=== PATIENT | male | born 1950 | race Hispanic/Latino ===

== ENCOUNTER 2022-02-16 08:00 | Inpatient (IN) | payer OTHER ==
[~2022-02-16] VITALS: Ht 177.8 cm; Wt 94.4 kg
[2022-02-16 09:32] LABS: APPEARANCE,URINE Clear (CLEAR); BILIRUBIN,URINE Negative (NEGATIVE); COLOR,URINE Dark Yellow (YELLOW); GLUCOSE, URINE (UA) Negative (NEGATIVE); KETONES,URINE Trace mg/dL (NEGATIVE); LEUKOCYTE ESTERASE ,URINE Negative (NEGATIVE); NITRATE,URINE Negative (NEGATIVE); OCCULT BLOOD,URINE Negative (NEGATIVE); PROTEIN,URINE Trace mg/dL (NEGATIVE)
[2022-02-16 09:57] LABS: BACTERIA,URINE Few /HPF (None Seen); MUCUS,URINE Many LPF (None Seen); RBC,URINE 0-1 /HPF (0-1); SQUAMOUS EPITHELIAL CELL,UR Rare /HPF (0-2); WBC,URINE 0-1 /HPF (0-1)
[2022-02-17 10:28] VITALS: BP 169/93
[2022-02-17] MEDS ORDERED: CETI10TA57 PO (11:46)
[2022-02-17] MEDS ORDERED: FAMO20TA8 PO (11:46)
[2022-02-17] MEDS ORDERED: BUDE10.2 IH (11:46)
[2022-02-17] MEDS ORDERED: TAMS-1 PO (11:46)
[2022-02-17] MEDS ORDERED: ALBU8.5H8 IH (11:46)
[2022-02-17] MEDS ORDERED: LIDO1ADH71 TP (11:46)
[2022-02-17] MEDS ORDERED: LATA7.5D OP (11:46)
[2022-02-17] MEDS ORDERED: DICL20GE TP (11:46)
[2022-02-17] MEDS ORDERED: CARV6.25 PO (11:46)
[2022-02-17] MEDS ORDERED: AEC81 PO (11:46)
[2022-02-17] MEDS ORDERED: BETA1TAB20 PO (11:46)
[2022-02-17] MEDS ORDERED: AMOX875T2 PO (11:46)
[2022-02-17] MEDS ORDERED: LOSA50TA64 PO (11:46)
[2022-02-17] MEDS ORDERED: DORZ10DR19 OP (11:46)
[2022-02-18] VITALS (24 sets, daily range): BP systolic 127–174; BP diastolic 78–93
[2022-02-18] MEDS: CEFAZOLIN SODIUM 1 GM VIAL IVP ONE ×2 (10:21→11:58)
[2022-02-18] MEDS ORDERED: LACTATED RINGERS 1000ML 1,000 ML IV ONE (10:30)
[2022-02-18] MEDS ORDERED: CEFAZOLIN SODIUM 1 GM VIAL ONE (10:42)
[2022-02-18] MEDS ORDERED: 0.9%NACL 10ML VIAL ONE (11:35)
[2022-02-18] MEDS ORDERED: ROPIVACAINE 0.5% 5MG/ML 30ML IJ ONE (11:35)
[2022-02-18] MEDS ORDERED: PROPOFOL 10 MG/ML 20ML VIAL IV ONE (11:43)
[2022-02-18] MEDS ORDERED: LIDOCAINE PF 100MG/5ML (2%) SYRINGE 5ML ONE (11:43)
[2022-02-18] MEDS ORDERED: FENTANYL CITRATE PF 50 MCG/1 ML 2ML VIAL ONE ×3 (11:43→14:11)
[2022-02-18] MEDS ORDERED: ROCURONIUM 10MG/1ML SYR 10 MG/ML ML ONE ×2 (11:43→12:46)
[2022-02-18] MEDS ORDERED: TRANEXAMIC ACID 1000MG/10ML ONE ×2 (12:02→14:42)
[2022-02-18] MEDS ORDERED: EPHEDRINE SULFATE 50 MG/ML AMPULE ONE (12:20)
[2022-02-18] MEDS: CEFAZOLIN SODIUM 1 GM VIAL ONE ×2 (12:35→12:36)
[2022-02-18] MEDS ORDERED: DiphenhydrAMINE HCL 50 MG/ML VIAL IVP PRN (14:30)
[2022-02-18] MEDS ORDERED: OXYCODONE HCL 5 MG TAB PO PRN (14:30)
[2022-02-18] MEDS ORDERED: CALCIUM CARB 500MG PO PRN (14:30)
[2022-02-18] MEDS ORDERED: TRAMADOL HCL 50 MG TABLET PO PRN (14:30)
[2022-02-18] MEDS ORDERED: KCL 20 MEQ ERTAB PO PRN (14:30)
[2022-02-18] MEDS: ACETAMINOPHEN 500 MG TABLET PO SCH ×2 (14:30→20:38)
[2022-02-18] MEDS ORDERED: ONDANSETRON 4MG INJ IVP PRN (14:30)
[2022-02-18] MEDS ORDERED: POTASSIUM CHLORIDE 10% ELIXIR 20 MEQ/15 ML UDCUP PO PRN (14:30)
[2022-02-18] MEDS ORDERED: POTASSIUM CHLORIDE 20MEQ/100ML 100 ML IV PRN (14:30)
[2022-02-18] MEDS ORDERED: FERROUS FUMARATE 324 MG TABLET PO PRN (14:30)
[2022-02-18] MEDS ORDERED: LIDOCAINE HCL-MPF 1% 2ML VIAL IV PRN (14:30)
[2022-02-18] MEDS ORDERED: TEMAZEPAM 15 MG CAPSULE PO PRN (14:30)
[2022-02-18] MEDS ORDERED: NEOSTIGMINE 5MG/5ML SYR IV ONE (14:41)
[2022-02-18] MEDS ORDERED: GLYCOPYRROLATE 1 MG/5 ML SYRINGE ONE (14:42)
[2022-02-18] MEDS ORDERED: MEPERIDINE-PF 25 MG/ML SYG ONE (15:06)
[2022-02-18] MEDS: KETOROLAC 15MG/ML VIAL (15MG/ML) IV PRN (16:58)
[2022-02-18] MEDS: 0.9%NACL 1000ML 1,000 ML IV SCH (16:58)
[2022-02-18] MEDS ORDERED: ALBUTEROL INHALER 90MCG/INH IH SCH (18:00)
[2022-02-18] MEDS: ALBUTEROL 0.083% 2.5 MG/3 ML INH IH SCH (18:00)
[2022-02-18] MEDS ORDERED: BUDESONIDE 0.5 MG/2 ML INH IH SCH (18:00)
[2022-02-18] MEDS: CEFAZOLIN SODIUM 1 GM VIAL IVP SCH (18:43)
[2022-02-18] MEDS: OXYCODONE HCL 5 MG TAB PO PRN ×2 (18:46→22:56)
[2022-02-18] MEDS: TAMSULOSIN HCL 0.4 MG CAP.ER.24H PO SCH (20:38)
[2022-02-18] MEDS: LOSARTAN 50 MG TABLET PO SCH (20:38)
[2022-02-18] MEDS: CELECOXIB 200 MG CAP PO SCH (20:38)
[2022-02-18] MEDS: VIT E PO SCH (20:39)
[2022-02-18] MEDS: VIT C PO SCH (20:39)
[2022-02-18] MEDS: FAMOTIDINE 20MG TAB PO SCH (20:39)
[2022-02-18] MEDS: ZINC PO SCH (20:39)
[2022-02-18] MEDS: DORZOLAMIDE HCL 2% 10ML DROPS OP SCH (20:39)
[2022-02-18] MEDS: COPPER PO SCH (20:39)
[2022-02-18] MEDS: CARVEDILOL 6.25 MG TABLET PO SCH (20:39)
[2022-02-18] MEDS: VIT A PO SCH (20:39)
[2022-02-18] MEDS: LATANOPROST 2.5 ML DROPS OP SCH (20:40)
[2022-02-18] MEDS ORDERED: ASPIRIN 81 MG EC TAB PO SCH (21:00)
[2022-02-19] MEDS: ALBUTEROL 0.083% 2.5 MG/3 ML INH IH SCH
[2022-02-19] MEDS: KETOROLAC 15MG/ML VIAL (15MG/ML) IV PRN ×4 (00:07→18:52)
[2022-02-19] MEDS: 0.9%NACL 1000ML 1,000 ML IV SCH ×2 (00:30→10:30)
[2022-02-19 03:47] VITALS: BP 132/76
[2022-02-19] MEDS: CEFAZOLIN SODIUM 1 GM VIAL IVP SCH (04:03)
[2022-02-19 04:14] LABS: MEAN CORPUSCULAR HEMOGLOBIN 30.1 pg (27.0-33.0); MEAN CORPUSCULAR HGB CONC 34.4 g/dL (32.0-36.0); MEAN CORPUSCULAR VOLUME 87.4 fL (79-99); RED BLOOD CELL COUNT(AUTO) 3.66 MIL/uL (4.50-6.20); RED CELL DISTRIBUTION WIDTH 12.5 % (11.0-15.5); WHITE BLOOD COUNT (AUTO) 10.5 K/uL (4.8-10.8)
[2022-02-19 04:25] LABS: CREATININE 1.2 mg/dL (0.5-1.5); POTASSIUM 3.8 mmol/L (3.5-5.1)
[2022-02-19] MEDS: OXYCODONE HCL 5 MG TAB PO PRN ×4 (05:54→23:58)
[2022-02-19] MEDS: ACETAMINOPHEN 500 MG TABLET PO SCH ×3 (06:30→22:30)
[2022-02-19] MEDS ORDERED: ALBUTEROL 0.083% 2.5 MG/3 ML INH IH PRN (07:00)
[2022-02-19] MEDS ORDERED: BUDESONIDE 0.5 MG/2 ML INH IH PRN (07:00)
[2022-02-19 08:25] VITALS: BP 134/85
[2022-02-19] MEDS: DORZOLAMIDE HCL 2% 10ML DROPS OP SCH ×2 (09:00→20:38)
[2022-02-19] MEDS: POLYETHYLENE GLYCOL 3350 17 GM POWD.PACK PO SCH (09:46)
[2022-02-19] MEDS: CETIRIZINE HCL 5 MG TABLET PO SCH (09:46)
[2022-02-19] MEDS: FAMOTIDINE 20MG TAB PO SCH ×2 (09:47→20:29)
[2022-02-19] MEDS: TAMSULOSIN HCL 0.4 MG CAP.ER.24H PO SCH ×2 (09:47→20:29)
[2022-02-19] MEDS: ASPIRIN 81 MG EC TAB PO SCH (09:47)
[2022-02-19] MEDS: LOSARTAN 50 MG TABLET PO SCH ×2 (09:47→20:29)
[2022-02-19] MEDS: CELECOXIB 200 MG CAP PO SCH ×2 (09:48→20:29)
[2022-02-19] MEDS: CARVEDILOL 6.25 MG TABLET PO SCH ×2 (09:48→20:30)
[2022-02-19 11:17] VITALS: BP 146/80
[2022-02-19 15:47] VITALS: BP 154/84
[2022-02-19 20:28] VITALS: BP 143/71
[2022-02-19] MEDS: VIT E PO SCH (20:30)
[2022-02-19] MEDS: COPPER PO SCH (20:30)
[2022-02-19] MEDS: ZINC PO SCH (20:30)
[2022-02-19] MEDS: VIT C PO SCH (20:30)
[2022-02-19] MEDS: VIT A PO SCH (20:30)
[2022-02-19] MEDS: LATANOPROST 2.5 ML DROPS OP SCH (20:39)
[2022-02-19 23:33] VITALS: BP 135/74
[2022-02-20] MEDS: KETOROLAC 15MG/ML VIAL (15MG/ML) IV PRN ×3 (00:55→20:05)
[2022-02-20] MEDS: OXYCODONE HCL 5 MG TAB PO PRN ×4 (04:30→23:09)
[2022-02-20 04:46] VITALS: BP 135/75
[2022-02-20] MEDS: ACETAMINOPHEN 500 MG TABLET PO SCH ×2 (06:15→23:10)
[2022-02-20 08:11] VITALS: BP 151/78
[2022-02-20] MEDS: ASPIRIN 81 MG EC TAB PO SCH (08:32)
[2022-02-20] MEDS: CETIRIZINE HCL 5 MG TABLET PO SCH (08:32)
[2022-02-20] MEDS: CELECOXIB 200 MG CAP PO SCH ×2 (08:33→20:05)
[2022-02-20] MEDS: TAMSULOSIN HCL 0.4 MG CAP.ER.24H PO SCH ×2 (08:33→20:05)
[2022-02-20] MEDS: POLYETHYLENE GLYCOL 3350 17 GM POWD.PACK PO SCH (08:34)
[2022-02-20] MEDS: FAMOTIDINE 20MG TAB PO SCH ×2 (08:34→20:05)
[2022-02-20] MEDS: LOSARTAN 50 MG TABLET PO SCH ×2 (08:34→20:05)
[2022-02-20] MEDS: CARVEDILOL 6.25 MG TABLET PO SCH ×2 (08:34→20:06)
[2022-02-20] MEDS: DORZOLAMIDE HCL 2% 10ML DROPS OP SCH ×2 (08:35→20:09)
[2022-02-20 11:15] VITALS: BP 143/75
[2022-02-20 16:24] VITALS: BP 135/70
[2022-02-20] MEDS ORDERED: BISACODYL 5 MG TABLET.DR PO ONE (18:11)
[2022-02-20] MEDS: BISACODYL 5 MG TABLET.DR PO SCH ×2 (18:18→20:06)
[2022-02-20] MEDS: ZINC PO SCH (20:07)
[2022-02-20] MEDS: VIT A PO SCH (20:07)
[2022-02-20] MEDS: VIT E PO SCH (20:07)
[2022-02-20] MEDS: COPPER PO SCH (20:07)
[2022-02-20] MEDS: VIT C PO SCH (20:07)
[2022-02-20] MEDS: LATANOPROST 2.5 ML DROPS OP SCH (20:10)
[2022-02-20 20:34] VITALS: BP 151/80
[2022-02-20 23:44] VITALS: BP 149/81
[2022-02-21 03:57] VITALS: BP 132/78
[2022-02-21] MEDS: ACETAMINOPHEN 500 MG TABLET PO SCH ×3 (05:59→22:30)
[2022-02-21] MEDS: OXYCODONE HCL 5 MG TAB PO PRN ×3 (06:00→19:42)
[2022-02-21 07:05] VITALS: BP 124/68
[2022-02-21] MEDS: ASPIRIN 81 MG EC TAB PO SCH (07:52)
[2022-02-21] MEDS: CELECOXIB 200 MG CAP PO SCH ×2 (07:52→19:52)
[2022-02-21] MEDS: BISACODYL 5 MG TABLET.DR PO SCH ×2 (07:52→19:52)
[2022-02-21] MEDS: FAMOTIDINE 20MG TAB PO SCH ×2 (07:52→19:53)
[2022-02-21] MEDS: CETIRIZINE HCL 5 MG TABLET PO SCH (07:52)
[2022-02-21] MEDS: TAMSULOSIN HCL 0.4 MG CAP.ER.24H PO SCH ×2 (07:52→19:52)
[2022-02-21] MEDS: CARVEDILOL 6.25 MG TABLET PO SCH ×2 (07:53→19:53)
[2022-02-21] MEDS: POLYETHYLENE GLYCOL 3350 17 GM POWD.PACK PO SCH (07:53)
[2022-02-21] MEDS: LOSARTAN 50 MG TABLET PO SCH ×2 (07:53→19:53)
[2022-02-21] MEDS: DORZOLAMIDE HCL 2% 10ML DROPS OP SCH ×2 (07:58→20:00)
[2022-02-21] MEDS: KETOROLAC 15MG/ML VIAL (15MG/ML) IV PRN (09:04)
[2022-02-21 10:55] VITALS: BP 124/63
[2022-02-21] MEDS ORDERED: BISACODYL 10 MG SUPP.RECT RC PRN (14:30)
[2022-02-21 15:00] VITALS: BP 130/74
[2022-02-21 19:38] VITALS: BP 142/75
[2022-02-21] MEDS: ZINC PO SCH (20:00)
[2022-02-21] MEDS: LATANOPROST 2.5 ML DROPS OP SCH (20:00)
[2022-02-21] MEDS: VIT C PO SCH (20:00)
[2022-02-21] MEDS: VIT A PO SCH (20:00)
[2022-02-21] MEDS: VIT E PO SCH (20:00)
[2022-02-21] MEDS: COPPER PO SCH (20:00)
[2022-02-21 23:41] VITALS: BP 118/61
[2022-02-22] MEDS: OXYCODONE HCL 5 MG TAB PO PRN ×5 (01:54→20:40)
[2022-02-22] MEDS: KETOROLAC 15MG/ML VIAL (15MG/ML) IV PRN ×3 (02:13→18:43)
[2022-02-22 03:58] VITALS: BP 127/69
[2022-02-22] MEDS: ACETAMINOPHEN 500 MG TABLET PO SCH ×2 (05:40→14:51)
[2022-02-22 08:00] VITALS: BP 148/78
[2022-02-22] MEDS: FAMOTIDINE 20MG TAB PO SCH ×2 (08:33→20:40)
[2022-02-22] MEDS: ASPIRIN 81 MG EC TAB PO SCH (08:34)
[2022-02-22] MEDS: CELECOXIB 200 MG CAP PO SCH ×2 (08:34→20:39)
[2022-02-22] MEDS: TAMSULOSIN HCL 0.4 MG CAP.ER.24H PO SCH ×2 (08:34→20:39)
[2022-02-22] MEDS: CETIRIZINE HCL 5 MG TABLET PO SCH (08:34)
[2022-02-22] MEDS: LOSARTAN 50 MG TABLET PO SCH ×2 (08:34→20:39)
[2022-02-22] MEDS: POLYETHYLENE GLYCOL 3350 17 GM POWD.PACK PO SCH (08:35)
[2022-02-22] MEDS: CARVEDILOL 6.25 MG TABLET PO SCH ×2 (08:35→20:40)
[2022-02-22] MEDS: BISACODYL 5 MG TABLET.DR PO SCH ×2 (08:35→20:42)
[2022-02-22] MEDS: DORZOLAMIDE HCL 2% 10ML DROPS OP SCH ×2 (09:00→21:00)
[2022-02-22] MEDS: ENOXAPARIN SODIUM 40 MG/0.4 ML SYRINGE SQ ONE ×2 (09:04→14:52)
[2022-02-22] MEDS ORDERED: ENOXAPARIN SODIUM 40 MG/0.4 ML SYRINGE SQ SCH ×2 (09:30)
[2022-02-22 11:56] VITALS: BP 122/63
[2022-02-22 16:00] VITALS: BP 147/78
[2022-02-22] MEDS: ZINC PO SCH (20:42)
[2022-02-22] MEDS: VIT E PO SCH (20:42)
[2022-02-22] MEDS: VIT A PO SCH (20:42)
[2022-02-22] MEDS: LATANOPROST 2.5 ML DROPS OP SCH (20:42)
[2022-02-22] MEDS: COPPER PO SCH (20:42)
[2022-02-22] MEDS: VIT C PO SCH (20:42)
[2022-02-23] VITALS: BP 143/76
[2022-02-23] MEDS: OXYCODONE HCL 5 MG TAB PO PRN (00:58)
== END 2022-02-23 01:30 | DRG 470 ==
LOC: EDSTATUS 08:00 → DAHIP 02-18 08:12 → 4AH 02-18 16:35
PROVIDERS: ADMIT Orthopaedic Surgery; ATTEND Orthopaedic Surgery
PROC: 3E0T3BZ Introduction of Anesthetic Agent into Peripheral Nerves and Plexi, Percutaneous Approach (ICD-10-PCS; 2022-02-18)
PROC: 0SRC0J9 Replacement of Right Knee Joint with Synthetic Substitute, Cemented, Open Approach (ICD-10-PCS; principal; 2022-02-18 11:38)
DX: M17.11 Unilateral primary osteoarthritis, right knee (principal); D64.9 Anemia, unspecified; J44.9 Chronic obstructive pulmonary disease, unspecified; Z86.73 Personal history of transient ischemic attack (TIA), and cerebral infarction without residual deficits; K21.9 Gastro-esophageal reflux disease without esophagitis; M19.90 Unspecified osteoarthritis, unspecified site; Z82.49 Family history of ischemic heart disease and other diseases of the circulatory system
CPT/HCPCS: 36415; 80048; 81001; 82948; 85027; 87088; 87635; 87641; 93005; 97039; G0378; J0690; J1650; J1885; J2001; J2175; J2704; J2710; J2795; J3010; J3490; J7030; J7120

== ENCOUNTER → 2024-04-12 | Outpatient (CLI) | payer OTHER ==
[~2024-04-12] MED LIST: AEC81 PO; BETA1TAB20 PO; BUDE10.2 IH; CARV6.25 PO; CETI10TA57 PO; DICL20GE TP; DORZ10DR19 OP; FAMO20TA8 PO; LATA7.5D OP; LOSA50TA64 PO; TAMS-1 PO
== END | disposition home or self-care (01) ==
LOC: RAH 08:31
PROVIDERS: ATTEND Family Medicine
DX: Z13.6 Encounter for screening for cardiovascular disorders (principal)
CPT/HCPCS: 75571